=== PATIENT | male | born 1975 | race Caucasian/White ===

== ENCOUNTER → 2017-11-23 | Outpatient (CLI) | payer MEDICAID ==
[~2017-11-23] MED LIST: BROM1POW5 MC; HYDR-4005 PO; MILK1TAB PO
[2017-11-23 14:14] LABS: BASOPHILS % 0.6 % (0.0-2.0); EOSINOPHILS % 0.6 % (0.0-5.0); HEMOGLOBIN. 16.6 g/dL (14.0-18.0); LYMPHOCYTES % 20.9 % (20.0-50.0); MEAN CORPUSCULAR HEMOGLOBIN 35.8 pg (28.0-32.0); MEAN CORPUSCULAR VOLUME 101.4 fL (80.0-94.0); MEAN PLATELET VOLUME 8.8 fl (7.4-10.4); MONOCYTES % 7.2 % (2.0-8.0); NEUTROPHILS % 70.7 % (40.0-76.0); PLATELET 148 x1000/uL (130-400); RED BLOOD CELL COUNT 4.63 mill/uL (4.7-6.1); RED CELL DISTRIBUTION WIDTH 12.7 % (11.6-14.6)
[2017-11-23 14:19] LABS: PARTIAL THROMBOPLASTIN TIME 25.9 sec (23.4-31.0); PROTHROMBIN TIME 10.8 sec (9.4-11.6)
[2017-11-23 14:21] LABS: CLARITY URINE CLEAR (CLEAR); COLOR URINE YELLOW (YELLOW); KETONES URINE NEGATIVE (NEGATIVE); LEUKOCYTE ESTERASE URINE NEGATIVE (NEGATIVE); NITRITE URINE NEGATIVE (NEGATIVE); OCCULT BLOOD URINE NEGATIVE (NEGATIVE); PROTEIN URINE NEGATIVE (NEGATIVE); SPECIFIC GRAVITY URINE 1.013 (1.005-1.030)
[2017-11-23 15:13] LABS: CHLORIDE 101 mEq/L (98-107)
[2017-11-23 15:20] LABS: LDL CHOLESTEROL 78 mg/dL (5-100)
[2017-11-23 15:22] LABS: HDL CHOLESTEROL 29 mg/dL (40-59)
== END | disposition home or self-care (01) ==
LOC: LAB 12:57
PROVIDERS: ATTEND Specialist
DX: Z01.810 Encounter for preprocedural cardiovascular examination (principal); R05 Cough; K40.90 Unilateral inguinal hernia, without obstruction or gangrene, not specified as recurrent; F17.200 Nicotine dependence, unspecified, uncomplicated; I10 Essential (primary) hypertension; R79.89 Other specified abnormal findings of blood chemistry
CPT/HCPCS: 36415; 71045; 80053; 80061; 81003; 84153; 84443; 85025; 85610; 85730; 93005

== ENCOUNTER 2017-11-30 05:20 | Day surgery (SDC) | payer MEDICAID ==
[~2017-11-30] VITALS: Ht 170.2 cm; Wt 59.0 kg
[2017-11-30] MEDS ORDERED: BUPIVACAINE HCL 0.5% (5MG/ML) 50ML ONE (05:48)
[2017-11-30] MEDS ORDERED: SKIN ADHESIVE 0.7 GM EA TOP ONE (05:48)
[2017-11-30] MEDS ORDERED: GLYCOPYRROLATE 0.2 MG/ML 2ML VIAL ONE ×2 (07:18→09:52)
[2017-11-30] MEDS ORDERED: PROPOFOL 200MG/20ML VIAL IV ONE (07:18)
[2017-11-30] MEDS ORDERED: ROCURONIUM BROMIDE 10MG/ML VIAL 5ML IV ONE ×2 (07:18→08:43)
[2017-11-30] MEDS ORDERED: FENTANYL CITRATE/PF 50MCG/ML 2ML VIAL ONE (07:18)
[2017-11-30] MEDS ORDERED: NEOSTIGMINE METHYLSULFATE 1MG/ML 10 ML VIAL ONE ×2 (07:18→09:52)
[2017-11-30] MEDS ORDERED: MIDAZOLAM HCL 2 MG/2 ML VIAL ONE ×2 (07:18→09:26)
[2017-11-30] MEDS ORDERED: LIDOCAINE HCL/PF 1% 10 MG/ML 5ML VIAL ONE (07:19)
[2017-11-30] MEDS ORDERED: CEFAZOLIN SODIUM 1000MG/VIAL ONE (07:19)
[2017-11-30] MEDS ORDERED: SUCCINYLCHOLINE CHLORIDE 200MG/10ML VIAL IV ONE (07:19)
[2017-11-30] MEDS ORDERED: ONDANSETRON HCL 4MG/2ML VIAL ONE (07:19)
[2017-11-30] MEDS ORDERED: LABETALOL 5MG/ML SYR 20 MG/4 ML SYRINGE IV PRN (07:30)
[2017-11-30] MEDS ORDERED: HYDROMORPHONE HCL/PF 2MG/ML CPJ IV PRN (07:30)
[2017-11-30] MEDS ORDERED: ONDANSETRON HCL 4MG/2ML VIAL IV PRN (07:30)
[2017-11-30] MEDS ORDERED: MEPERIDINE HCL/PF 25MG/ML CPJ IV PRN (07:30)
[2017-11-30] MEDS ORDERED: MILK1TAB PO (08:22)
[2017-11-30] MEDS ORDERED: HYDR-4005 PO (08:22)
[2017-11-30] MEDS ORDERED: BROM1POW5 MC (08:22)
[2017-11-30] MEDS ORDERED: LABETALOL HCL 5MG/ML VIAL 20ML IV ONE (09:11)
[2017-11-30 10:32] VITALS: BP 165/102
== END 2017-11-30 14:30 | disposition home or self-care (01) ==
LOC: OR 05:20
PROVIDERS: ATTEND Surgery
DX: K40.90 Unilateral inguinal hernia, without obstruction or gangrene, not specified as recurrent (principal); I10 Essential (primary) hypertension; F17.210 Nicotine dependence, cigarettes, uncomplicated; Z79.899 Other long term (current) drug therapy
CPT/HCPCS: 49650; C1781; G0168; J0330; J0690; J1170; J2250; J2405; J2710; J3010; J3490; J7120; J2704

== ENCOUNTER 2019-01-21 10:30 | Emergency (ER) | payer SELFPAY ==
[~2019-01-21] VITALS: Ht 170.2 cm; Wt 61.0 kg
[2019-01-21] MEDS ORDERED: HYDROCODONE/ACETAMINOPHEN 5/325MG TABLET PO ONE (15:00)
[2019-01-21] MEDS ORDERED: DOCUSATE SODIUM SUGAR FREE 100MG/10ML UDC NG ONE (15:00)
[2019-01-21 15:25] VITALS: BP 127/86
== END 2019-01-21 15:33 | disposition home or self-care (01) ==
LOC: ER 12:40
DX: H72.92 Unspecified perforation of tympanic membrane, left ear (principal); Z72.0 Tobacco use; R03.0 Elevated blood-pressure reading, without diagnosis of hypertension
CPT/HCPCS: 69209; 99283